=== PATIENT | male | born 1990 | race Caucasian/White ===

== ENCOUNTER 2018-07-18 10:37 | Emergency (ER) | payer SELFPAY ==
[2018-07-18] MEDS ORDERED: KETOROLAC TROMETHAMINE INJ/PF 30 MG/1 ML SDV IV ONE (11:33)
--- NOTE | 2018-07-18 11:34 | ER Document Report ---
ED Medical Screen (RME) - General Chief Complaint: Chest Pain Stated Complaint: CHEST PAIN Time Seen by Provider: 07/18/18 11:25 Notes: Patient is a 28-year-old male that presents to the emergency department for chief complaint of chest pain. Patient states he started having chest pain last night in the left side of his chest, worse with movement of his arms and stretching this morning, said associated cough, and feeling somewhat short of breath. Denies any other complaints at this time. ROS: Other than noted above, the 12 point review of systems was reviewed with the patient and were negative, all pertinent findings are included in the HPI. PHYSICAL EXAMINATION: Vital signs reviewed. GENERAL: Well-appearing, well-nourished and in no acute distress. HEAD: Atraumatic, normocephalic. EYES: Pupils equal round extraocular movements intact, conjunctiva are normal. ENT: Nares patent NECK: Normal range of motion CV: Heart regular rate and rhythm LUNGS: No respiratory distress, no chest wall tenderness Musculoskeletal: Normal range of motion NEUROLOGICAL: Normal speech PSYCH: Normal mood, normal affect. MDM: Patient seen and examined for rapid initial assessment. Vital signs reviewed. A comprehensive ED assessment and evaluation of the patient, analysis of test results and completion of the medical decision making process will be conducted by additional ED providers. *Note is created using voice recognition software and may contain spelling, syntax or grammatical errors. TRAVEL OUTSIDE OF THE [place] IN LAST 30 DAYS: No - Related Data Allergies/Adverse Reactions: cephalexin [From Keflex] Adverse Reaction (Verified 07/18/18 11:26) Past Medical History Renal/ Medical History: Denies: Hx Peritoneal Dialysis Physical Exam - Vital signs Vitals: Temp Pulse Resp BP Pulse Ox 97.5 F 65 14 110/71 100 07/18/18 10:47 07/18/18 10:47 07/18/18 10:47 07/18/18 10:47 07/18/18 10:47 Course - Vital Signs Vital signs: Temp Pulse Resp BP Pulse Ox 97.5 F 65 14 110/71 100 07/18/18 10:47 07/18/18 10:47 07/18/18 10:47 07/18/18 10:47 07/18/18 10:47
[2018-07-18 12:01] LABS: ABSOLUTE EOSINOPHILS # (AUTO) 0.3 10^3/uL (0.0-0.6); ABSOLUTE LYMPHOCYTES (AUTO) 2.7 10^3/uL (0.5-4.7); ABSOLUTE MONOCYTES (AUTO) 0.5 10^3/uL (0.1-1.4); ABSOLUTE NEUT (AUTO) 4.9 10^3/uL (1.7-8.2); BASOPHILS % (AUTO) 0.4 % (0-2); EOSINOPHILS % (AUTO) 3.8 % (0-6); HEMATOCRIT 49.6 % (37.9-51.0); HEMOGLOBIN 17.1 g/dL (13.5-17.0); LYMPHOCYTES % (AUTO) 31.8 % (13-45); MEAN CORPUSCULAR HGB CONC 34.5 g/dL (32.0-36.0); MEAN CORPUSCULAR VOLUME 87 fl (80-97); MONOCYTES % (AUTO) 6.3 % (3-13); PLATELET COUNT 189 10^3/uL (150-450); RED CELL DISTRIBUTION WIDTH 14.2 % (11.5-14.0); SEGMENTED NEUTROPHILS % (AUTO) 57.7 % (42-78); TOTAL CELLS COUNTED % (AUTO) 100 %; WHITE BLOOD COUNT 8.5 10^3/uL (4.0-10.5)
[2018-07-18 12:17] LABS: ALANINE AMINOTRANSFERASE 34 U/L (21-72); ALBUMIN 5.1 g/dL (3.5-5.0); ALKALINE PHOSPHATASE 48 U/L (38-126); ANION GAP 11 (5-19); ASPARTATE AMINO TRANSFERASE 20 U/L (17-59); BILIRUBIN,TOTAL 1.1 mg/dL (0.2-1.3); BLOOD UREA NITROGEN 18 mg/dL (7-20); CARBON DIOXIDE 31 mmol/L (22-30); CHLORIDE 101 mmol/L (98-107); GLUCOSE 102 mg/dL (75-110); POTASSIUM 4.8 mmol/L (3.6-5.0); SODIUM 142.8 mmol/L (137-145); TOTAL PROTEIN 7.3 g/dL (6.3-8.2)
--- NOTE | 2018-07-18 12:53 | EKG REPORT ---
SEVERITY:- NORMAL ECG - SINUS RHYTHM : Confirmed by: Terrell Onofre MD 18-Jul-2018 12:51:29
--- NOTE | 2018-07-18 13:08 | RADIOLOGY REPORT (SQ) ---
EXAM DESCRIPTION: CHEST 2 VIEWS COMPLETED DATE/TIME: 07/18/2018 12:33 pm REASON FOR STUDY: left chest pain COMPARISON: None. TECHNIQUE: Frontal and lateral radiographic views of the chest acquired. NUMBER OF VIEWS: Two view. LIMITATIONS: None. FINDINGS: LUNGS AND PLEURA: No opacities, masses or pneumothorax. No pleural effusion. MEDIASTINUM AND HILAR STRUCTURES: No masses or contour abnormalities. HEART AND VASCULAR STRUCTURES: Heart normal size. No evidence for failure. BONES: No acute findings. HARDWARE: None in the chest. OTHER: No other significant finding. IMPRESSION: NO SIGNIFICANT RADIOGRAPHIC FINDING IN THE CHEST. TECHNICAL DOCUMENTATION: JOB ID: [id number] [employer]- All Rights Reserved Reading location - IP/workstation name: [email or web address]
--- NOTE | 2018-07-18 13:38 | ER Document Report ---
ED General - General Chief Complaint: Chest Pain Stated Complaint: CHEST PAIN Time Seen by Provider: 07/18/18 11:25 TRAVEL OUTSIDE OF THE [place] IN LAST 30 DAYS: No - HPI Notes: Patient presents to the emergency department for evaluation of left-sided chest pain. He states it started last night while he was at work. It was present again when he woke up this morning's who comes in for evaluation. He does have a mild cough. He denies any shortness of breath, nausea, diaphoresis, near syncope. He is unable to describe the pain for me, stating sometimes is achy and sometimes is sharp. - Related Data Allergies/Adverse Reactions: cephalexin [From Keflex] Adverse Reaction (Verified 07/18/18 11:26) Past Medical History - Social History Smoking Status: Current Every Day Smoker Family History: DM, Other - No history of premature coronary artery disease in the family Patient has suicidal ideation: No Patient has homicidal ideation: No Renal/ Medical History: Denies: Hx Peritoneal Dialysis Review of Systems - Review of Systems EENT: No symptoms reported Cardiovascular: See HPI Respiratory: Cough Gastrointestinal: No symptoms reported Skin: No symptoms reported -: Yes All other systems reviewed and negative Physical Exam - Vital signs Vitals: Temp Pulse Resp BP Pulse Ox 97.5 F 65 14 110/71 100 07/18/18 10:47 07/18/18 10:47 07/18/18 10:47 07/18/18 10:47 07/18/18 10:47 Interpretation: Normal - Notes Notes: Vital signs reviewed, please refer to chart. Patient is normocephalic, atraumatic. Pupils equal round, reactive to light. Neck is supple without meningismus. Heart is regular rate and rhythm. Lungs are clear to auscultation bilaterally. Abdomen is soft, nontender, normoactive bowel sounds throughout. Extremities without cyanosis, clubbing, edema. Calves are nontender. Peripheral pulses are equal. Skin is warm and dry. Patient is awake, alert, neurological exam is nonfocal. Course - Re-evaluation Re-evalutation: 07/18/18 13:39 Patient presents to the emergency department for evaluation of chest pain. It is likely musculoskeletal. He has only one risk factor for coronary artery disease and this is smoking. He is told he should quit smoking. He voiced understanding to this. Patient remained stable throughout the course of his st ay. I will have him follow-up with his primary care physician, he is to return to the emergency department with worsening or new concerning symptoms of any sort. - Vital Signs Vital signs: Temp Pulse Resp BP Pulse Ox 97.5 F 65 19 109/75 100 07/18/18 10:47 07/18/18 10:47 07/18/18 12:01 07/18/18 12:01 07/18/18 12:01 - Laboratory Result Diagrams: 07/18/18 11:47 07/18/18 11:47 Laboratory results interpreted by me: 07/18/18 07/18/18 11:47 11:47 RBC 5.70 H Hgb 17.1 H RDW 14.2 H Carbon Dioxide 31 H Albumin 5.1 H - EKG Interpretation by Me Additional EKG results interpreted by me: 07/18/18 13:39 Sinus mechanism with a rate of [address] No acute [address] changes concerning for ischemia or infarction. Discharge - Discharge Clinical Impression: Chest pain Condition: Stable Disposition: HOME, SELF-CARE Instructions: Chest Pain of Unclear Cause ([facility]) Additional Instructions: Follow-up with your doctor next week. Try to quit smoking. Return to the emergency department with worsening or new concerning symptoms of any sort. Forms: Smoking Cessation Education
[2018-07-18 13:55] VITALS: BP 114/73
== END 2018-07-18 13:55 | disposition home or self-care (01) ==
LOC: ER 10:37
DX: R07.9 Chest pain, unspecified (principal); R05 Cough; F17.200 Nicotine dependence, unspecified, uncomplicated
CPT/HCPCS: 93005; 99284; 96374; 36415; 85025; 80053; 84484; 71046; 93010; J1885

== ENCOUNTER 2018-10-28 18:25 | Emergency (ER) | payer SELFPAY ==
[2018-10-28] MEDS ORDERED: MUPIROCIN 2% OINTMENT 22 GM TP ONE (19:27)
[2018-10-28] MEDS ORDERED: SULFAMETHOXAZOLE/TRIMETHOPRIM 800-160 MG TABLET PO ONE (19:27)
--- NOTE | 2018-10-28 19:35 | ER Document Report ---
HPI - HPI Patient complains to provider of: sore on ear Time Seen by Provider: 10/28/18 19:19 Pain Level: 0 Context: Generally healthy 28-year-old male with history of MRSA cellulitis presents to the emergency department chief complaint of sore on the left ear. He states that it was much bigger earlier about 4 days ago and he was having some generalized malaise and fatigue but then "popped" the sore with a safety pin and was able to express some purulent material. He said it is gone down tremendously he feels much better in the interim time. He denies any fevers or chills, any redness or erythema. He does have generalized acne and states that he glances and pops sores and abscesses all the time over the last several years. Past Medical History - Social History Smoking Status: Unknown if Ever Smoked Family History: DM, Other - No history of premature coronary artery disease in the family Renal/ Medical History: Denies: Hx Peritoneal Dialysis Vertical Provider Document - CONSTITUTIONAL Notes: PHYSICAL EXAMINATION: Reviewed vital signs and charting by RN GENERAL: Alert, interacts well. No acute distress. HEAD: Normocephalic, atraumatic. EYES: Pupils equal, round, and reactive to light. Extraocular movements intact. ENT: Oral mucosa moist, tongue midline. NECK: Full range of motion. Supple. Trachea midline. LUNGS: Clear to auscultation bilaterally, no wheezes, rales, or rhonchi. No respiratory distress. HEART: Regular rate and rhythm. No murmur ABDOMEN: soft, non-tender. No distention. Bowel sounds present EXTREMITIES: Moves all 4 extremities spontaneously. No edema, No cyanosis. PSYCH: Normal affect, normal mood. SKIN: Warm, dry, normal turgor. Generalized acne and there is a small nodule felt behind the ear cartilage approximately 2 to 3 mm around with no area of fluctuance felt. - INFECTION CONTROL TRAVEL OUTSIDE OF THE [place] IN LAST 30 DAYS: No Course - Re-evaluation Re-evalutation: 10/28/18 19:32 Well-appearing. Patient has a lot of scarring and does have acne with a significant MRSA history. States that he uses mupirocin ointment when his lesions are small and not typically works. I palpated the ear and it was not big enough to needle aspirate or to adrianne. Because of his extensive history I am going to put him on Bactrim DS twice daily for 7 days and I will give him a refill on his mupirocin ointment. Patient reaction to Keflex so I will not give him double coverage. I gave patient strict return precautions and is stable for discharge. - Vital Signs Vital signs: Temp Pulse Resp BP Pulse Ox 98.1 F 66 16 110/83 98 10/28/18 18:29 10/28/18 18:29 10/28/18 18:29 10/28/18 18:29 10/28/18 18:29 Discharge - Discharge Clinical Impression: Lesion of left external ear Condition: Good Disposition: HOME, SELF-CARE Additional Instructions: You are seen in the emergency department this evening for sore or lesion on the back of your left ear. After palpating on it felt that it was not big enough to aspirate or to adrianne open. This is especially true considering that you popped it a few days ago and is gone down considerably you are feeling better. With that, I will give you Bactrim double strength 1 tablet 2 times per day for 7 days and I have refilled your mupirocin prescription. If you develop fever, redness or erythema, signs of cellulitis, your throat closing up like an al lergic reaction, or have any other concerning symptoms please merely return to the emergency department. Prescriptions: Mupirocin [Bactroban 2% Ointment 22 gm] 1 applic TP TID #1 tube Sulfamethoxazole/Trimethoprim [Bactrim Ds Tablet] 1 each PO BID #14 tablet
[2018-10-28 20:02] VITALS: BP 115/79
== END 2018-10-28 20:00 | disposition home or self-care (01) ==
LOC: ER 18:25
DX: L98.9 Disorder of the skin and subcutaneous tissue, unspecified (principal); L70.9 Acne, unspecified; Z86.14 Personal history of Methicillin resistant Staphylococcus aureus infection; R53.83 Other fatigue; R53.81 Other malaise
CPT/HCPCS: 99283; J3490

== ENCOUNTER 2019-12-02 13:44 | Emergency (ER) | payer SELFPAY ==
--- NOTE | 2019-12-02 15:40 | ER Document Report ---
ED Dizziness/Weakness - General Chief Complaint: Nausea Stated Complaint: NAUSEA/VOMITING Time Seen by Provider: 12/02/19 15:07 Primary Care Provider: SANTOS ESCOBAR MD [ACTIVE STAFF] - Follow up as needed Mode of Arrival: Ambulatory Information source: Patient Notes: 29-year-old male with no previous medical problems presents the emergency room complaining of nausea with dizziness for the past 2 days. States the symptoms started after removing a nicotine patch which he states he had completed his treatment of. Denies any head trauma or head injury. Complains of a mild headache. States is worse with movement. Does not feel like the room is spinning or like he is spinning he just feels off balance when he works. No recent travel. No COVID-19 exposure. TRAVEL OUTSIDE OF THE [place] IN LAST 30 DAYS: No - Related Data Allergies/Adverse Reactions: cephalexin [From Keflex] Adverse Reaction (Verified 10/28/18 18:25) Past Medical History - General Information source: Patient - Social History Smoking Status: Former Smoker Frequency of alcohol use: None Drug Abuse: None Family History: DM, Other - No history of premature coronary artery disease in the family Renal/ Medical History: Denies: Hx Peritoneal Dialysis Review of Systems - Review of Systems Constitutional: No symptoms reported EENT: No symptoms reported Cardiovascular: Dizziness Respiratory: No symptoms reported Gastrointestinal: Nausea. denies: Abdominal pain, Vomiting, Constipation Skin: No symptoms reported Hematologic/Lymphatic: No symptoms reported Neurological/Psychological: No symptoms reported -: Yes All other systems reviewed and negative Physical Exam - Vital signs Vitals: Temp Pulse Resp BP Pulse Ox 98.1 F 74 16 127/81 H 96 12/02/19 13:47 12/02/19 13:47 12/02/19 13:47 12/02/19 13:47 12/02/19 13:47 - General General appearance: Appears well, Alert In distress: Mild - HEENT Head: Normocephalic Eyes: Normal Conjunctiva: Normal Cornea: Normal Extraocular movements intact: Yes Pupils: PERRL Ears: Normal External canal: Normal Tympanic membrane: Other - Right tympanic membrane erythematous and bulging. Right outer ear canal without erythema or swelling. Left tympanic membrane intact without erythema or swelling. Left outer ear canal intact without erythema or swelling. Sinus: Normal Nasal: Normal Mouth/Lips: Normal Pharynx: Normal Neck: Normal - Respiratory Respiratory status: No respiratory distress Chest status: Nontender Breath sounds: Normal Chest palpation: Normal - Cardiovascular Rhythm: Regular Heart sounds: Normal auscultation Murmur: No - Abdominal Inspection: Normal Distension: No distension Bowel sounds: Normal Tenderness: Nontender Organomegaly: No organomegaly - Neurological Neuro grossly intact: Yes Cognition: Normal Orientation: AAOx4 [place] Coma Scale Eye Opening: Spontaneous [place] Coma Scale Verbal: Oriented [place] Coma Scale Motor: Obeys Commands [place] Coma Scale Total: 15 Speech: Normal Motor strength normal: LUE, RUE, LLE, RLE Sensory: Normal Notes: Negative for nystagmus. Negative Nylan Barany - Skin Skin Temperature: Warm Skin Moisture: Dry Skin Color: Normal Course - Re-evaluation Re-evalutation: 12/02/19 15:37 Counseled patient on diagnosis. Will discharge home on p.o. amoxicillin. Patient is allergic to Keflex but states he has taken amoxicillin in the past without any other interactions or side effects. Was counseled follow-up with a primary care physician if not improving in 2 to 3 days. On-call physician was provided. Patient was given strict return to the emergency room guidelines. Return for any new or worsening symptoms. All questions were answered. Patient verbalized understanding and agrees with plan of care. - Vital Signs Vital signs: Temp Pulse Resp BP Pulse Ox 98.2 F 67 16 113/83 100 12/02/19 15:53 12/02/19 15:53 12/02/19 13:47 12/02/19 15:53 12/02/19 15:53 Discharge - Discharge Clinical Impression: Right otitis media Qualifiers: Otitis media type: unspecified Qualified Code(s): H66.91 - Otitis media, unspecified, right ear Right otitis externa Qualifiers: Otitis externa type: unspecified type Chronicity: acute Qualified Code(s): H60.501 - Unspecified acute noninfective otitis externa, right ear Condition: Stable Disposition: HOME, SELF-CARE Instructions: Use of Ear Drops ([facility]), Otitis Externa ([facility]), Otitis Media ([facility]) Additional Instructions: Take Antibiotics and use eardrops as prescribed. Follow-up with a primary care physician if not improving in 2 to 3 days. Return to the emergency room for any new or worsening symptoms. Prescriptions: Amoxicillin 1 tab PO TID #30 tab Neomy Sulf/Polymyx B Sulf/Hc [Cortisporin Otic Susp] 4 drop RT_EAR QID 10 Days #1 bottle Forms: Return to Work Referrals: SANTOS ESCOBAR MD [ACTIVE STAFF] - Follow up as needed
[2019-12-02 15:56] VITALS: BP 113/83
== END 2019-12-02 15:56 | disposition home or self-care (01) ==
LOC: ER 13:44
DX: H66.91 Otitis media, unspecified, right ear (principal); H60.501 Unspecified acute noninfective otitis externa, right ear; R11.0 Nausea; R42 Dizziness and giddiness; R51 Headache; Z87.891 Personal history of nicotine dependence
CPT/HCPCS: 99283

== ENCOUNTER 2020-01-01 20:04 | Emergency (ER) | payer SELFPAY ==
[2020-01-01 20:36] VITALS: BP 125/86
--- NOTE | 2020-01-01 20:45 | ER Document Report ---
ED Medical Screen (RME) - General Chief Complaint: Headache, Worst Ever Stated Complaint: HEADACHE Time Seen by Provider: 01/01/20 20:34 Mode of Arrival: Ambulatory Information source: Patient Notes: 29-year-old male presented to ED with headache. He states he was at home with his when he lost the vision to the right eye he said everything kind of went white. He states something similar happened about 2 days ago and the vision was gone for about an hour today the vision was gone for about 20 minutes. He states after the vision came back he felt very nauseated. He states when he had a headache a couple days ago it was due to a bright light and today it was a light at a restaurant. Patient is alert oriented respirations regular nonlabored speaking in full sentences at this time. He does have equal associate media director. He has no neurological symptoms at this time. I have greeted and performed a rapid initial assessment of this patient. A comprehensive ED assessment and evaluation of the patient, analysis of test results and completion of medical decision making process will be conducted by an additional ED providers. TRAVEL OUTSIDE OF THE [place] IN LAST 30 DAYS: No - Related Data Allergies/Adverse Reactions: cephalexin [From Keflex] Adverse Reaction (Verified 10/28/18 18:25) Past Medical History Renal/ Medical History: Denies: Hx Peritoneal Dialysis Physical Exam - Vital signs Vitals: Temp Pulse Resp BP Pulse Ox 98.1 F 58 L 16 125/86 H 99 01/01/20 20:34 01/01/20 20:34 01/01/20 20:34 01/01/20 20:34 01/01/20 20:34 Course - Vital Signs Vital signs: Temp Pulse Resp BP Pulse Ox 98.1 F 58 L 16 125/86 H 99 01/01/20 20:34 01/01/20 20:34 01/01/20 20:34 01/01/20 20:34 01/01/20 20:34
[2020-01-01 21:01] LABS: ABSOLUTE EOSINOPHILS # (AUTO) 0.1 10^3/uL (0.0-0.6); ABSOLUTE MONOCYTES (AUTO) 0.6 10^3/uL (0.1-1.4); ABSOLUTE NEUT (AUTO) 7.7 10^3/uL (1.7-8.2); BASOPHILS % (AUTO) 0.4 % (0-2); HEMATOCRIT 47.4 % (37.9-51.0); HEMOGLOBIN 15.8 g/dL (13.5-17.0); LYMPHOCYTES % (AUTO) 19.4 % (13-45); MEAN CORPUSCULAR HEMOGLOBIN 28.8 pg (27.0-33.4); MEAN CORPUSCULAR HGB CONC 33.3 g/dL (32.0-36.0); MEAN CORPUSCULAR VOLUME 87 fl (80-97); MONOCYTES % (AUTO) 5.6 % (3-13); PLATELET COUNT 215 10^3/uL (150-450); RED BLOOD COUNT 5.48 10^6/uL (4.35-5.55); RED CELL DISTRIBUTION WIDTH 14.4 % (11.5-14.0); SEGMENTED NEUTROPHILS % (AUTO) 73.6 % (42-78); TOTAL CELLS COUNTED % (AUTO) 100 %; WHITE BLOOD COUNT 10.5 10^3/uL (4.0-10.5)
[2020-01-01 21:17] LABS: ALBUMIN 4.9 g/dL (3.5-5.0); ALKALINE PHOSPHATASE 45 U/L (38-126); ANION GAP 8 (5-19); ASPARTATE AMINO TRANSFERASE 43 U/L (17-59); BILIRUBIN,TOTAL 0.6 mg/dL (0.2-1.3); BLOOD UREA NITROGEN 16 mg/dL (7-20); CALCIUM 9.6 mg/dL (8.4-10.2); CARBON DIOXIDE 31 mmol/L (22-30); CHLORIDE 99 mmol/L (98-107); GLUCOSE 113 mg/dL (75-110); POTASSIUM 4.9 mmol/L (3.6-5.0); TOTAL PROTEIN 7.4 g/dL (6.3-8.2)
[2020-01-01 21:20] LABS: URINE AMPHETAMINES SCREEN NEGATIVE; URINE BARBITURATES SCREEN NEGATIVE; URINE BENZODIAZEPINES SCREEN NEGATIVE; URINE COCAINE SCREEN NEGATIVE; URINE MARIJUANA (THC) SCREEN NEGATIVE; URINE METHADONE SCREEN NEGATIVE; URINE PHENCYCLIDINE SCREEN NEGATIVE
[2020-01-01 21:29] LABS: APPEARANCE,URINE SLIGHTLY-CLOUDY; BILIRUBIN,URINE NEGATIVE (NEGATIVE); COLOR,URINE YELLOW; GLUCOSE, URINE NEGATIVE (NEGATIVE); KETONES,URINE NEGATIVE (NEGATIVE); LEUKOCYTE ESTERASE,URINE NEGATIVE (NEGATIVE); NITRITE,URINE NEGATIVE (NEGATIVE); PROTEIN,URINE NEGATIVE (NEGATIVE); URINE SPECIFIC GRAVITY 1.021
--- NOTE | 2020-01-01 21:42 | ER Document Report ---
ED General - General Chief Complaint: Headache, Worst Ever Stated Complaint: HEADACHE Time Seen by Provider: 01/01/20 20:34 Mode of Arrival: Ambulatory Information source: Patient Notes: 01/01/20 20:43 - ED Nursing Note by YVES VALERIO Num: [id number] : 1990 Patient Age: 29 PT WAS AT [employer] AND HAD CRUZ AND COULDN'T SEE OUT OF RT EYE FOR 20 MIN. PT DID TAKE IBUPROFEN 400 MG AT 1700, WITH SOME RELIEF, PT IS SL NAUSEATED FROM THE PAIN. ARM STRENGTH EQUAL, PULILS EQUAL. ED Medical Screen (RME)Solomon Notes - General Chief Complaint: Headache, Worst Ever Stated Complaint: HEADACHE Time Seen by Provider: 01/01/20 20:34 Mode of Arrival: Ambulatory Information source: Patient Notes: 29-year-old male presented to ED with headache. He states he was at home with his when he lost the vision to the right eye he said everything kind of went white. He states something similar happened about 2 days ago and the vision was gone for about an hour today the vision was gone for about 20 minutes. He states after the vision came back he felt very nauseated. He states when he had a headache a couple days ago it was due to a bright light and today it was a light at a restaurant. Patient is alert oriented respirations regular nonlabored speaking in full sentences at this time. He does have equal technician assistant. He has no neurological symptoms at this time. my notes 29-year-old male arrives with worst headache of his life with a LED bright light that became like the sun in his right while he was at [facility] with his . Patient reports his vision went away for least 20 minutes and then when it returned his headache was quite severe. He had no vomiting but does have nausea. Patient denies any problems moving his fingers moving his feet or legs. He has good sensation to all extremities he has no nuchal rigidity or problems swallowing or taste problems. He denies any coronavirus exposure. Patient denies any prior history of any similar symptoms. No one in his family has any seizures. He denies any Rico's paralysis.Madalyn girlfriend at bedside TRAVEL OUTSIDE OF THE [place] IN LAST 30 DAYS: No - HPI Onset: Just prior to arrival Onset/Duration: Sudden, Better Quality of pain: Achy Severity: Mild Pain Level: 1 Associated symptoms: Nausea. denies: Earache, Hoarseness, Hurts to breath, Vomiting, Rhinnorhea, Slow to respond, Sore throat, Sweating, Weakness Exacerbated by: Denies Relieved by: Denies Similar symptoms previously: No Recently seen / treated by doctor: No - Related Data Allergies/Adverse Reactions: cephalexin [From Keflex] Adverse Reaction (Verified 10/28/18 18:25) Past Medical History - General Information source: Patient - Social History Smoking Status: Former Smoker Cigarette use (# per day): No Chew tobacco use (# tins/day): No Smoking Education Provided: No Frequency of alcohol use: None Drug Abuse: None Lives with: Family Family History: DM, Other - No history of premature coronary artery disease in the family Patient has suicidal ideation: No Patient has homicidal ideation: No Renal/ Medical History: Denies: Hx Peritoneal Dialysis Review of Systems - Review of Systems Constitutional: No symptoms reported EENT: See HPI, Blurred vision Cardiovascular: No symptoms reported Respiratory: No symptoms reported Gastrointestinal: No symptoms reported Genitourinary: No symptoms reported Male Genitourinary: No symptoms reported Musculoskeletal: No symptoms reported Skin: No symptoms reported Hematologic/Lymphatic: No symptoms reported Neurological/Psychological: See HPI, Headaches Physical Exam - Vital signs Vitals: Temp Pulse Resp BP Pulse Ox 98.1 F 58 L 16 125/86 H 99 01/01/20 20:34 01/01/20 20:34 01/01/20 20:34 01/01/20 20:34 01/01/20 20:34 Interpretation: Normal - HEENT Head: Normocephalic, Atraumatic Eyes: Normal Conjunctiva: Normal Cornea: Normal Extraocular movements intact: Yes Pupils: PERRL Visual acuity- Right eye: 20/25 Visual acuity- Left eye: 20/15 Visual acuity- Both eyes: 20/13 Corrective lenses worn: Yes Sinus: Normal Nasal: Normal Mouth/Lips: Normal Mucous membranes: Normal Pharynx: Normal Neck: Normal - Respiratory Respiratory status: No respiratory distress Chest status: Nontender Breath sounds: Normal Chest palpation: Normal - Cardiovascular Rhythm: Regular Heart sounds: Normal auscultation Murmur: No - Abdominal Inspection: Normal Distension: No distension Bowel sounds: Normal Tenderness: Nontender Organomegaly: No organomegaly - Rectal Hemorrhoids: Other - deferred - Genitourinary Scrotum: Other - deferred - Back Back: Normal - Extremities General upper extremity: Normal inspection General lower extremity: Normal inspection - Neurological Neuro grossly intact: Yes Cognition: Normal Orientation: AAOx4 [place] Coma Scale Eye Opening: Spontaneous [place] Coma Scale Verbal: Oriented [place] Coma Scale Motor: Obeys Commands [place] Coma Scale Total: 15 Speech: Normal Motor strength normal: LUE, RUE, LLE, RLE Sensory: Normal - Psychological Associated symptoms: Normal affect - Skin Skin Temperature: Warm Skin Moisture: Dry Course - Vital Signs Vital signs: Temp Pulse Resp BP Pulse Ox 98.1 F 58 L 16 125/86 H 99 01/01/20 20:34 01/01/20 20:34 01/01/20 20:34 01/01/20 20:34 01/01/20 20:34 - Laboratory Result Diagrams: 01/01/20 20:46 01/01/20 20:46 Laboratory results interpreted by me: 01/01/20 01/01/20 01/01/20 20:46 20:46 20:46 RDW 14.4 H Carbon Dioxide 31 H Glucose 113 H ALT 104 H Urine Urobilinogen 2.0 H Urine Ascorbic Acid 40 H - Diagnostic Test Radiology reviewed: Reports reviewed Critical Care Note - Critical Care Note Comments: I discussed this case with Dr. Mcleod at 000 0 hours and he advises following up in his office tomorrow and also Decadron 10 IM and also oral 4 mg every 6 hours Discharge - Discharge Clinical Impression: Cephalgia Qualifiers: Headache type: unspecified Headache chronicity pattern: acute headache Intractability: not intractable Qualified Code(s): R51 - Headache Condition: Good Disposition: HOME, SELF-CARE Additional Instructions: Follow-up with Dr. Mcleod tomorrow. Call his office at [phone] and insist with the veterinary receptionist that Dr. Mcleod did call to get him a evaluation today. Return to ER as needed take medicines as directed encourage fluids try to wear sunglasses while out in the sunshine. Also take seizure precautions and always have someone with you until evaluated by Dr. Flowers and or neurologist. Prescriptions: Dexamethasone [Decadron 4 Mg Tablet] 4 mg PO TID #20 tablet Phenytoin Sodium Extended [Dilantin 100 mg Capsule.er] 100 mg PO TID #90 capsule Forms: Return to Work
--- NOTE | 2020-01-01 22:04 | RADIOLOGY REPORT (SQ) ---
EXAM DESCRIPTION: CT HEAD WITHOUT IV CONTRAST COMPLETED DATE/TME: 01/01/2020 20:41 CLINICAL HISTORY: 29 years, Male, Severe headache with temporary loss of vision COMPARISON: None. TECHNIQUE: Axial images without IV contrast. Sagittal coronal reconstruction. Images stored on PACS. All CT scanners at this facility use dose modulation, iterative reconstruction, and/or weight based dosing when appropriate to reduce radiation dose to as low as reasonably achievable (ALARA). FINDINGS: Normal size ventricles. Incidental midline normal variant structure, cavum septum pellucidum. No acute intra-axial or extra-axial abnormalities. Small retention cysts in the right maxillary sinus. Mastoid air cells and bony calvarium are unremarkable. IMPRESSION: No acute findings intracranially. TECHNICAL DOCUMENTATION: Quality ID # [id number]: Final reports with documentation of one or more dose reduction techniques (e.g., Automated exposure control, adjustment of the mA and/or kV according to patient size, use of iterative reconstruction technique)
--- NOTE | 2020-01-01 23:01 | RADIOLOGY REPORT (SQ) ---
EXAM DESCRIPTION: MR BRAIN WITHOUT IV CONTRAST COMPLETED DATE/TME: 01/01/2020 21:31 CLINICAL HISTORY: Worst headache ever change in vision COMPARISON: 01/01/2020 CT TECHNIQUE: Multiplanar images of the brain were obtained without the administration of intravenous contrast FINDINGS: Ventricles and sulci appear within normal limits for the patient's age. No evidence of midline shift or mass effect. Cavum vergae. Symmetric flow voids in the carotid siphons. Dominant right vertebral artery. Mucous retention cyst or polyp in the maxillary sinus on the right. No areas of restricted diffusion to suggest acute infarct. There is an ovoid lesion within the occipital calvarium on the right which is low signal on T1 although slightly heterogeneous, and high signal on T2 demonstrating restricted diffusion. Question epidermoid. Recommend interval follow-up to exclude additional etiologies or more aggressive lesion. IMPRESSION: No evidence of acute infarct Ovoid lesion in the right posterior fossa along the posterior margin of the right cerebellum which may arise either within or results in some bony remodeling of the right occipital calvarium. Question epidermoid. Recommend short interval follow-up to document stability and exclude more aggressive lesion
[2020-01-02] MEDS ORDERED: DEXAMETHASONE SOD PHOS INJ 10 MG/1 ML VIAL IM ONE (00:04)
== END 2020-01-02 00:55 | disposition home or self-care (01) ==
LOC: ER 20:04
DX: R51 Headache (principal); H53.8 Other visual disturbances; R11.0 Nausea; Z87.891 Personal history of nicotine dependence
CPT/HCPCS: 99284; 96372; 36415; 85025; 80053; 81001; 80307; 70551; 70450; J1100

== ENCOUNTER 2020-01-03 21:41 | Emergency (ER) | payer SELFPAY ==
[2020-01-03 22:07] VITALS: BP 117/73
[2020-01-03] MEDS ORDERED: METOCLOPRAMIDE HCL INJ/PF 10 MG/2 ML SDV IV ONE (22:29)
[2020-01-03] MEDS ORDERED: RINGERS SOLUTION,LACTATED 1,000 ML IV ONE (22:29)
[2020-01-03] MEDS ORDERED: DIPHENHYDRAMINE HCL 50 MG/ML VIAL IV ONE (22:29)
--- NOTE | 2020-01-03 22:32 | ER Document Report ---
ED Medical Screen (RME) - General Chief Complaint: Headache Stated Complaint: HEADACHE Time Seen by Provider: 01/03/20 22:22 Mode of Arrival: Ambulatory Information source: Patient Notes: HPI; 29 male presents emergency room complaining of persistent sinus pressure and headache behind his right eye. Patient was seen here 2 days ago and diagnosed with a mass on his occipital part of his brain. States that he is spoke with Dr. Bora powell who feels that it is probably a benign tumor. He is still pending a neurology follow-up. Is not been taking any medications for his symptoms. 3 migraines. No head trauma head injury. PE: Alert and oriented x3. Mild distress noted.PERRLA, EOMI. lungs: Clear to auscultation without rales, rhonchi, wheezes. Heart: Regular rate rhythm without murmurs, rubs, gallops. I have greeted and performed a rapid initial assessment of this patient. A comprehensive ED assessment and evaluation of the patient, analysis of test results and completion of the medical decision making process will be conducted by additional ED providers. I have specifically instructed the patient or family members with the patient to immediately return to any nursing staff should anything change in the patient's condition or with their chief complaint. TRAVEL OUTSIDE OF THE [place] IN LAST 30 DAYS: No - Related Data Allergies/Adverse Reactions: cephalexin [From Keflex] Adverse Reaction (Verified 10/28/18 18:25) Past Medical History Renal/ Medical History: Denies: Hx Peritoneal Dialysis Physical Exam - Vital signs Vitals: Temp Pulse Resp BP Pulse Ox 98.3 F 56 L 20 117/73 99 01/03/20 22:05 01/03/20 22:05 01/03/20 22:05 01/03/20 22:05 01/03/20 22:05 Course - Vital Signs Vital signs: Temp Pulse Resp BP Pulse Ox 98.3 F 56 L 20 117/73 99 01/03/20 22:05 01/03/20 22:05 01/03/20 22:05 01/03/20 22:05 01/03/20 22:05
== END 2020-01-04 00:05 | disposition left against medical advice (07) ==
LOC: ER 21:41
DX: R51 Headache (principal); R09.89 Other specified symptoms and signs involving the circulatory and respiratory systems; G93.9 Disorder of brain, unspecified; Z53.29 Procedure and treatment not carried out because of patient's decision for other reasons
CPT/HCPCS: 99281